=== PATIENT | female | born 1930 | race Caucasian/White ===

== ENCOUNTER 2017-11-04 16:49 | Emergency (ER) | payer OTHER ==
[2017-11-04 18:00] LABS: ADD MAN DIFF? NO
[2017-11-04 18:02] LABS: WHITE BLOOD COUNT 11.7 10^3/ul (4.8-10.8)
[2017-11-04 18:02] LABS: BASOPHIL # 0.1 10^3/ul (0.0-0.1); BASOPHILS % 0.4 % (0.0-2.0); EOSINOPHILS # 0.1 10^3/ul (0.0-0.5); EOSINOPHILS % 1.2 % (0.0-7.0); HEMATOCRIT 29.7 % (37.0-47.0); HEMOGLOBIN 9.5 g/dl (12.0-16.0); LYMPHOCYTES # 1.4 10^3/ul (0.8-2.9); LYMPHOCYTES % 11.8 % (15.0-51.0); MEAN CORPUSCULAR VOLUME 93.7 fl (82.0-101.0); MEAN PLATELET VOLUME 12.2 fl (7.4-10.4); MONOCYTE # 0.9 10^3/ul (0.3-0.9); MONOCYTES % 7.6 % (0.0-11.0); NEUTROPHIL # 9.2 10^3/ul (1.6-7.5); NEUTROPHILS % 78.6 % (39.0-77.0); PLATELET COUNT 222 10^3/UL (140-415); RED BLOOD COUNT 3.17 10^6/ul (4.20-5.40); RED CELL DISTRIBUTION WIDTH 14.1 % (11.5-14.5)
[2017-11-04 18:17] LABS: INR 1.36; PT RATIO 1.3
[2017-11-04 18:18] LABS: PARTIAL THROMBOPLASTIN TIME 42.8 Sec (25.0-35.0)
[2017-11-04 18:19] LABS: ANION GAP 12 (8-16); BLOOD UREA NITROGEN 27 mg/dl (7-20); CALCIUM 8.8 mg/dl (8.4-10.2); CARBON DIOXIDE 35 mmol/L (21-31); CHLORIDE 100 mmol/L (97-110); CREATININE 0.82 mg/dl (0.44-1.00); GLUCOSE 141 mg/dl (70-220); POTASSIUM 3.9 mmol/L (3.5-5.1); SODIUM 143 mmol/L (135-144)
[2017-11-04 18:30] LABS: TROPONIN-I 0.016 ng/ml (0.00-0.12)
[2017-11-04] MEDS: morphine 4 MG/ML VIAL IV (18:46)
[2017-11-04] MEDS: SOD CHLORIDE 0.9% 500 ML IV (18:49)
== END 2017-11-04 23:50 | disposition home or self-care (01) ==
LOC: E/R 23:50
DX: S72.144A Nondisplaced intertrochanteric fracture of right femur, initial encounter for closed fracture (principal); R07.9 Chest pain, unspecified; W18.39XA Other fall on same level, initial encounter; Y92.9 Unspecified place or not applicable; Z79.84 Long term (current) use of oral hypoglycemic drugs; Z79.01 Long term (current) use of anticoagulants
CPT/HCPCS: 36415; 71010; 72170; 73510; 80048; 84484; 85025; 85610; 85730; 93005; 96374; 99285-25

== ENCOUNTER 2017-11-15 14:28 | Inpatient (IN) | payer OTHER ==
[2017-11-15] MEDS: SOD CHLORIDE 0.9% 500 ML IV (16:44)
[2017-11-15 18:01] LABS: ADD MAN DIFF? NO
[2017-11-15 18:04] LABS: BASOPHILS % 0.4 % (0.0-2.0); EOSINOPHILS # 0.2 10^3/ul (0.0-0.5); EOSINOPHILS % 1.7 % (0.0-7.0); HEMATOCRIT 30.9 % (37.0-47.0); LYMPHOCYTES # 1.6 10^3/ul (0.8-2.9); MEAN CORPUSCULAR HEMOGLOBIN 29.5 pg (29.0-33.0); MEAN CORPUSCULAR HGB CONC 32.4 g/dl (32.0-37.0); MEAN CORPUSCULAR VOLUME 91.2 fl (82.0-101.0); MEAN PLATELET VOLUME 10.9 fl (7.4-10.4); MONOCYTE # 0.7 10^3/ul (0.3-0.9); MONOCYTES % 7.4 % (0.0-11.0); NEUTROPHILS % 72.9 % (39.0-77.0); PLATELET COUNT 410 10^3/UL (140-415); RED BLOOD COUNT 3.39 10^6/ul (4.20-5.40); RED CELL DISTRIBUTION WIDTH 14.1 % (11.5-14.5)
[2017-11-15 18:04] LABS: WHITE BLOOD COUNT 9.6 10^3/ul (4.8-10.8)
[2017-11-15 18:33] LABS: ANION GAP 10 (8-16); BLOOD UREA NITROGEN 16 mg/dl (7-20); CALCIUM 8.6 mg/dl (8.4-10.2); CARBON DIOXIDE 36 mmol/L (21-31); CHLORIDE 93 mmol/L (97-110); CREATININE 0.56 mg/dl (0.44-1.00); GLUCOSE 199 mg/dl (70-220); POTASSIUM 3.8 mmol/L (3.5-5.1); SODIUM 135 mmol/L (135-144)
[2017-11-15 19:02] LABS: TROPONIN-I < 0.012 ng/ml (0.00-0.12)
[2017-11-15] MEDS: morphine 2 MG INJ IV (19:04)
[2017-11-15] MEDS: ONDANSETRON 4 MG INJ IV (19:04)
[2017-11-15] MEDS ORDERED: ACETAMINOPHEN 325 MG TAB PO (20:00)
[2017-11-15] MEDS ORDERED: ONDANSETRON 4 MG INJ IV ×2 (20:00→22:00)
[2017-11-15] MEDS ORDERED: NACL 0.9% 3 ML SYG IV (22:00)
[2017-11-15] MEDS ORDERED: GLUCAGON 1 MG INJ IM (22:30)
[2017-11-15] MEDS ORDERED: DEXTROSE 50% 50 ML SYRINGE IV ×2 (22:30)
[2017-11-15] MEDS ORDERED: GLUCOSE GEL 15 GRAM TUBE BUCCAL (22:30)
[2017-11-15] MEDS ORDERED: GLUCOSE GEL 15 GRAM TUBE PO ×2 (22:30)
[2017-11-15] MEDS: SOD CHLORIDE 0.9% 1,000 ML IV ×2 (22:45→23:02)
[2017-11-16] MEDS: INSULIN ASPART [NOVOLOG] 3 ML PEN SC ×6 (01:18→20:40)
[2017-11-16] MEDS: ACCU-CHEK XX (01:19)
[2017-11-16 06:08] LABS: ADD MAN DIFF? NO
[2017-11-16 06:14] LABS: WHITE BLOOD COUNT 9.1 10^3/ul (4.8-10.8)
[2017-11-16 06:14] LABS: BASOPHILS % 0.3 % (0.0-2.0); EOSINOPHILS # 0.1 10^3/ul (0.0-0.5); EOSINOPHILS % 0.5 % (0.0-7.0); HEMATOCRIT 30.6 % (37.0-47.0); HEMOGLOBIN 9.9 g/dl (12.0-16.0); LYMPHOCYTES # 0.8 10^3/ul (0.8-2.9); LYMPHOCYTES % 8.8 % (15.0-51.0); MEAN CORPUSCULAR HEMOGLOBIN 29.6 pg (29.0-33.0); MEAN CORPUSCULAR HGB CONC 32.4 g/dl (32.0-37.0); MEAN CORPUSCULAR VOLUME 91.3 fl (82.0-101.0); MEAN PLATELET VOLUME 11.2 fl (7.4-10.4); MONOCYTE # 0.7 10^3/ul (0.3-0.9); MONOCYTES % 7.2 % (0.0-11.0); NEUTROPHIL # 7.6 10^3/ul (1.6-7.5); NEUTROPHILS % 82.7 % (39.0-77.0); PLATELET COUNT 415 10^3/UL (140-415); RED BLOOD COUNT 3.35 10^6/ul (4.20-5.40); RED CELL DISTRIBUTION WIDTH 14.1 % (11.5-14.5)
[2017-11-16 06:48] LABS: ALANINE AMINOTRANSFERASE 51 IU/L (13-69); ALBUMIN 2.9 g/dl (3.3-4.9); ALBUMIN/GLOBULIN RATIO 1.16; ALKALINE PHOSPHATASE 301 IU/L (42-121); ANION GAP 9 (8-16); ASPARTATE AMINO TRANSFERASE 29 IU/L (15-46); BILIRUBIN,INDIRECT 0.7 mg/dl (0-1.1); BILIRUBIN,TOTAL 0.7 mg/dl (0.2-1.3); BLOOD UREA NITROGEN 15 mg/dl (7-20); CALCIUM 8.6 mg/dl (8.4-10.2); CARBON DIOXIDE 35 mmol/L (21-31); CHLORIDE 96 mmol/L (97-110); CREATININE 0.57 mg/dl (0.44-1.00); GLUCOSE 175 mg/dl (70-220); MAGNESIUM 2.2 mg/dl (1.7-2.5); POTASSIUM 3.9 mmol/L (3.5-5.1); SODIUM 136 mmol/L (135-144); TOTAL PROTEIN 5.4 g/dl (6.1-8.1)
[2017-11-16 07:18] LABS: THYROID STIMULATING HORMONE 0.569 MIU/L (0.465-4.680)
[2017-11-16] MEDS: DIVALPROEX SPRINKLE 125 MG CAP PO ×2 (09:39→20:34)
[2017-11-16] MEDS: AMLODIPINE 5 MG TAB PO (09:40)
[2017-11-16] MEDS: METOPROLOL 25 MG TAB PO ×2 (09:40→20:34)
[2017-11-16] MEDS: FOLIC ACID 1 MG TAB PO (09:41)
[2017-11-16] MEDS: LOSARTAN 50 MG TAB PO (09:41)
[2017-11-16 09:50] LABS: HEMOGLOBIN A1C 6.7 % (0-5.9)
[2017-11-16] MEDS: QUETIAPINE 25 MG TAB PO (20:33)
[2017-11-16] MEDS ORDERED: NON-FORMULARY/PATIENT OWN MED (Quetiapine Fumarate* 50 MG) PO (21:00)
[2017-11-17] MEDS: INSULIN ASPART [NOVOLOG] 3 ML PEN SC ×6 (01:27→20:24)
[2017-11-17] MEDS: ACCU-CHEK XX (01:28)
[2017-11-17] MEDS: DIVALPROEX SPRINKLE 125 MG CAP PO ×2 (09:09→20:17)
[2017-11-17] MEDS: FOLIC ACID 1 MG TAB PO (09:09)
[2017-11-17] MEDS: METOPROLOL 25 MG TAB PO (09:10)
[2017-11-17] MEDS: LOSARTAN 50 MG TAB PO (09:10)
[2017-11-17] MEDS: AMLODIPINE 5 MG TAB PO (09:10)
[2017-11-17] MEDS: ACETAMINOPHEN 325 MG TAB PO (12:41)
[2017-11-17] MEDS: morphine 2 MG INJ IV (15:47)
[2017-11-17] MEDS: FAMOTIDINE 20 MG TAB PO (15:47)
[2017-11-17] MEDS: metFORMIN 500 MG TAB PO (17:24)
[2017-11-17 19:40] LABS: IRON 27 ug/dl (35-150)
[2017-11-17 19:50] LABS: % IRON SATURATION 13 % SAT (22-52); TOTAL IRON BINDING CAPACITY 215 ug/dl (241-421)
[2017-11-17] MEDS: QUETIAPINE 25 MG TAB PO (20:17)
[2017-11-17] MEDS: METOPROLOL 50 MG TAB PO (20:19)
[2017-11-18] MEDS: D5W-0.45 NACL + KCL 20 MEQ 1,000 ML IV ×4 (01:17→20:00)
[2017-11-18] MEDS: ACCU-CHEK XX (01:22)
[2017-11-18] MEDS: FOLIC ACID 1 MG TAB PO (07:44)
[2017-11-18] MEDS: LOSARTAN 50 MG TAB PO (07:44)
[2017-11-18] MEDS: INSULIN ASPART [NOVOLOG] 3 ML PEN SC ×4 (07:44→21:24)
[2017-11-18] MEDS: DIVALPROEX SPRINKLE 125 MG CAP PO ×2 (07:44→21:15)
[2017-11-18] MEDS: METOPROLOL 50 MG TAB PO ×2 (07:45→21:00)
[2017-11-18] MEDS: AMLODIPINE 5 MG TAB PO (07:45)
[2017-11-18] MEDS: FAMOTIDINE 20 MG TAB PO (07:45)
[2017-11-18] MEDS ORDERED: ONDANSETRON 4 MG INJ IV (08:00)
[2017-11-18] MEDS ORDERED: DIPHENHYDRAMINE 50 MG INJ IV (08:00)
[2017-11-18] MEDS ORDERED: hydrALAzine 20 MG INJ IV (08:00)
[2017-11-18] MEDS ORDERED: HYDROmorphONE (0.2 MG/ML) 10ML SYG IV ×2 (08:00)
[2017-11-18] MEDS ORDERED: MIDAZOLAM 1 MG/ML 2 ML INJ (08:20)
[2017-11-18] MEDS ORDERED: FENTAnyl 50 MCG/ML VIAL ×2 (08:20→08:31)
[2017-11-18] MEDS: CEFAZOLIN 1 GM/50 ML (PMX) 50 ML IVPB ×2 (08:20→16:37)
[2017-11-18] MEDS ORDERED: KETAMINE 500 MG INJ (08:27)
[2017-11-18] MEDS: POLYMYXIN/BACITRACIN 1L IRRIG (09:55)
[2017-11-18] MEDS ORDERED: ROCURONIUM 50 MG INJ (10:37)
[2017-11-18] MEDS ORDERED: LIDOCAINE 100 MG SYRINGE (10:37)
[2017-11-18] MEDS ORDERED: GLYCOPYRROLATE 0.4 MG INJ (10:37)
[2017-11-18] MEDS ORDERED: NEOSTIGMINE 3 MG/3 ML SYRINGE (10:37)
[2017-11-18] MEDS ORDERED: ETOMIDATE 20 MG INJ (10:37)
[2017-11-18] MEDS ORDERED: ONDANSETRON 4 MG INJ (10:38)
[2017-11-18] MEDS ORDERED: NALOXONE (0.4 MG/ML) INJ IV (11:00)
[2017-11-18] MEDS ORDERED: NACL 0.9% 3 ML SYG IV (11:00)
[2017-11-18] MEDS ORDERED: CEFAZOLIN 1 GM/50 ML (PMX) 50 ML IVPB (11:00)
[2017-11-18] MEDS: FENTAnyl 50 MCG/ML VIAL IV ×3 (11:19→11:42)
[2017-11-18] MEDS: ONDANSETRON 4 MG INJ IV ×2 (11:44→16:37)
[2017-11-18] MEDS: metFORMIN 500 MG TAB PO (16:37)
[2017-11-18] MEDS: ASPIRIN (EC) 325 MG TAB PO (21:15)
[2017-11-18] MEDS: QUETIAPINE 25 MG TAB PO (21:17)
[2017-11-19] MEDS: ONDANSETRON 4 MG INJ IV ×2 (00:02→05:47)
[2017-11-19] MEDS: CEFAZOLIN 1 GM/50 ML (PMX) 50 ML IVPB ×2 (00:02→07:54)
[2017-11-19] MEDS: ACCU-CHEK XX (02:10)
[2017-11-19] MEDS: D5W-0.45 NACL + KCL 20 MEQ 1,000 ML IV (06:00)
[2017-11-19] MEDS: KETOROLAC 15 MG INJ IV ×2 (06:13→14:27)
[2017-11-19 06:16] LABS: ADD MAN DIFF? NO
[2017-11-19 06:27] LABS: BASOPHILS % 0.3 % (0.0-2.0); EOSINOPHILS # 0.1 10^3/ul (0.0-0.5); HEMATOCRIT 26.1 % (37.0-47.0); HEMOGLOBIN 8.6 g/dl (12.0-16.0); LYMPHOCYTES # 1.2 10^3/ul (0.8-2.9); MEAN CORPUSCULAR HEMOGLOBIN 29.8 pg (29.0-33.0); MEAN CORPUSCULAR VOLUME 90.3 fl (82.0-101.0); MEAN PLATELET VOLUME 10.7 fl (7.4-10.4); MONOCYTE # 0.8 10^3/ul (0.3-0.9); MONOCYTES % 10.4 % (0.0-11.0); NEUTROPHIL # 5.8 10^3/ul (1.6-7.5); NEUTROPHILS % 72.8 % (39.0-77.0); PLATELET COUNT 368 10^3/UL (140-415); RED BLOOD COUNT 2.89 10^6/ul (4.20-5.40); RED CELL DISTRIBUTION WIDTH 14.6 % (11.5-14.5)
[2017-11-19 06:55] LABS: ALANINE AMINOTRANSFERASE 35 IU/L (13-69); ALBUMIN 2.5 g/dl (3.3-4.9); ALBUMIN/GLOBULIN RATIO 1.04; ALKALINE PHOSPHATASE 275 IU/L (42-121); ANION GAP 7 (8-16); ASPARTATE AMINO TRANSFERASE 18 IU/L (15-46); BILIRUBIN,INDIRECT 0.4 mg/dl (0-1.1); BILIRUBIN,TOTAL 0.4 mg/dl (0.2-1.3); BLOOD UREA NITROGEN 11 mg/dl (7-20); CALCIUM 7.8 mg/dl (8.4-10.2); CARBON DIOXIDE 30 mmol/L (21-31); CHLORIDE 99 mmol/L (97-110); CREATININE 0.62 mg/dl (0.44-1.00); GLUCOSE 188 mg/dl (70-220); POTASSIUM 3.4 mmol/L (3.5-5.1); SODIUM 133 mmol/L (135-144); TOTAL PROTEIN 4.9 g/dl (6.1-8.1)
[2017-11-19] MEDS: LOSARTAN 50 MG TAB PO (07:53)
[2017-11-19] MEDS: DIVALPROEX SPRINKLE 125 MG CAP PO ×2 (07:53→21:11)
[2017-11-19] MEDS: AMLODIPINE 5 MG TAB PO (07:53)
[2017-11-19] MEDS: FAMOTIDINE 20 MG TAB PO (07:53)
[2017-11-19] MEDS: ASPIRIN (EC) 325 MG TAB PO ×2 (07:53→21:11)
[2017-11-19] MEDS: FOLIC ACID 1 MG TAB PO (07:53)
[2017-11-19] MEDS: METOPROLOL 50 MG TAB PO ×2 (07:54→21:12)
[2017-11-19] MEDS: INSULIN ASPART [NOVOLOG] 3 ML PEN SC ×4 (08:25→21:00)
[2017-11-19] MEDS: oxyCODONE 5 MG TAB PO (15:50)
[2017-11-19] MEDS: LORAZEPAM 1 MG TAB PO (18:13)
[2017-11-19] MEDS: QUETIAPINE 25 MG TAB PO (21:11)
[2017-11-20] MEDS: ACCU-CHEK XX (02:00)
[2017-11-20] MEDS: KETOROLAC 15 MG INJ IV ×2 (02:31→12:48)
[2017-11-20 06:21] LABS: ADD MAN DIFF? NO
[2017-11-20 06:31] LABS: WHITE BLOOD COUNT 7.6 10^3/ul (4.8-10.8)
[2017-11-20 06:31] LABS: BASOPHILS % 0.4 % (0.0-2.0); EOSINOPHILS # 0.4 10^3/ul (0.0-0.5); EOSINOPHILS % 4.6 % (0.0-7.0); HEMATOCRIT 23.3 % (37.0-47.0); HEMOGLOBIN 7.5 g/dl (12.0-16.0); LYMPHOCYTES # 1.6 10^3/ul (0.8-2.9); LYMPHOCYTES % 21.7 % (15.0-51.0); MEAN CORPUSCULAR HEMOGLOBIN 29.3 pg (29.0-33.0); MEAN CORPUSCULAR HGB CONC 32.2 g/dl (32.0-37.0); MEAN PLATELET VOLUME 10.8 fl (7.4-10.4); MONOCYTE # 0.7 10^3/ul (0.3-0.9); MONOCYTES % 9.2 % (0.0-11.0); NEUTROPHIL # 4.8 10^3/ul (1.6-7.5); NEUTROPHILS % 63.7 % (39.0-77.0); PLATELET COUNT 310 10^3/UL (140-415); RED BLOOD COUNT 2.56 10^6/ul (4.20-5.40); RED CELL DISTRIBUTION WIDTH 14.6 % (11.5-14.5)
[2017-11-20] MEDS: INSULIN ASPART [NOVOLOG] 3 ML PEN SC ×4 (08:00→21:00)
[2017-11-20] MEDS: METOPROLOL 50 MG TAB PO ×2 (09:00→21:25)
[2017-11-20] MEDS: LOSARTAN 50 MG TAB PO (09:00)
[2017-11-20] MEDS: DIVALPROEX SPRINKLE 125 MG CAP PO ×2 (09:46→21:24)
[2017-11-20] MEDS: ASPIRIN (EC) 325 MG TAB PO ×2 (09:46→21:24)
[2017-11-20] MEDS: FERROUS SULFATE (EC) 325 MG TAB PO ×2 (14:05→21:25)
[2017-11-20] MEDS: oxyCODONE 5 MG TAB PO (16:08)
[2017-11-20] MEDS: LORAZEPAM 1 MG TAB PO (17:59)
[2017-11-20] MEDS: QUETIAPINE 25 MG TAB PO (21:25)
[2017-11-21] MEDS: LORAZEPAM 1 MG TAB PO (01:50)
[2017-11-21] MEDS: ACCU-CHEK XX (02:00)
[2017-11-21 06:14] LABS: ADD MAN DIFF? NO
[2017-11-21 06:24] LABS: BASOPHILS % 0.4 % (0.0-2.0); EOSINOPHILS # 0.3 10^3/ul (0.0-0.5); EOSINOPHILS % 4.7 % (0.0-7.0); HEMATOCRIT 23.8 % (37.0-47.0); HEMOGLOBIN 7.6 g/dl (12.0-16.0); LYMPHOCYTES # 1.5 10^3/ul (0.8-2.9); LYMPHOCYTES % 21.7 % (15.0-51.0); MEAN CORPUSCULAR HEMOGLOBIN 29.1 pg (29.0-33.0); MEAN CORPUSCULAR HGB CONC 31.9 g/dl (32.0-37.0); MEAN CORPUSCULAR VOLUME 91.2 fl (82.0-101.0); MEAN PLATELET VOLUME 10.6 fl (7.4-10.4); MONOCYTE # 0.7 10^3/ul (0.3-0.9); MONOCYTES % 9.3 % (0.0-11.0); NEUTROPHIL # 4.4 10^3/ul (1.6-7.5); NEUTROPHILS % 63.5 % (39.0-77.0); PLATELET COUNT 308 10^3/UL (140-415); RED BLOOD COUNT 2.61 10^6/ul (4.20-5.40); RED CELL DISTRIBUTION WIDTH 14.6 % (11.5-14.5)
[2017-11-21 06:41] LABS: INR 1.21; PROTIME 15.5 Sec (11.9-14.9); PT RATIO 1.2
[2017-11-21 06:42] LABS: PARTIAL THROMBOPLASTIN TIME 34.8 Sec (25.0-35.0)
[2017-11-21 07:04] LABS: ANION GAP 6 (8-16); BLOOD UREA NITROGEN 11 mg/dl (7-20); CALCIUM 8.2 mg/dl (8.4-10.2); CARBON DIOXIDE 33 mmol/L (21-31); CHLORIDE 101 mmol/L (97-110); CREATININE 0.59 mg/dl (0.44-1.00); GLUCOSE 120 mg/dl (70-220); POTASSIUM 3.3 mmol/L (3.5-5.1); SODIUM 137 mmol/L (135-144)
[2017-11-21] MEDS: INSULIN ASPART [NOVOLOG] 3 ML PEN SC ×2 (08:15→11:48)
[2017-11-21] MEDS: DIVALPROEX SPRINKLE 125 MG CAP PO (08:18)
[2017-11-21] MEDS: FERROUS SULFATE (EC) 325 MG TAB PO (08:18)
[2017-11-21] MEDS: LOSARTAN 50 MG TAB PO (08:18)
[2017-11-21] MEDS: oxyCODONE 5 MG TAB PO (08:18)
[2017-11-21] MEDS: ASPIRIN (EC) 325 MG TAB PO (08:19)
[2017-11-21] MEDS: METOPROLOL 50 MG TAB PO (08:19)
[2017-11-21] MEDS: POTASSIUM CHLORIDE 20 MEQ POWDER FOR ORAL SOLN PO (11:40)
== END 2017-11-21 14:45 | DRG 481 ==
LOC: E/R 14:28 → MS2 19:35
PROC: 0QS606Z Reposition Right Upper Femur with Intramedullary Internal Fixation Device, Open Approach (ICD-10-PCS; principal; 2017-11-18 07:30)
DX: S72.141A Displaced intertrochanteric fracture of right femur, initial encounter for closed fracture (principal); I50.32 Chronic diastolic (congestive) heart failure; I11.0 Hypertensive heart disease with heart failure; G30.1 Alzheimer's disease with late onset; I48.0 Paroxysmal atrial fibrillation; E11.9 Type 2 diabetes mellitus without complications; D64.9 Anemia, unspecified; F02.80 Dementia in other diseases classified elsewhere, unspecified severity, without behavioral disturbance, psychotic disturbance, mood disturbance, and anxiety; S72.091A Other fracture of head and neck of right femur, initial encounter for closed fracture; E78.5 Hyperlipidemia, unspecified; Z86.73 Personal history of transient ischemic attack (TIA), and cerebral infarction without residual deficits; W19.XXXA Unspecified fall, initial encounter; Y92.129 Unspecified place in nursing home as the place of occurrence of the external cause; G89.4 Chronic pain syndrome
CPT/HCPCS: 36415; 71045; 72170; 73510; 73530; 80048; 80053; 82728; 82962; 83036; 83540; 83735; 84443; 84484; 85025; 85610; 85730; 93005; 93306; 96374; 96375; 97110; 97163; 97530; 99285-25